=== PATIENT | male | born 1955 | race African-American/Black ===

== ENCOUNTER 2022-03-30 10:42 | Emergency (ER) | payer OTHER ==
[2022-03-30 11:05] VITALS: BP 131/72; PULSE 93; RESP 18; TEMP 99.2; BMI 29.2
[2022-03-30] MEDS ORDERED: DIPHTH,PERTUSS(ACELL),TET 0.5 ML DISP.SYRIN IM ONE ×2 (12:12→12:13)
== END 2022-03-30 14:33 | disposition home or self-care (01) ==
LOC: JER 10:42 → JERFT 10:42
PROC: 3E0234Z Introduction of Serum, Toxoid and Vaccine into Muscle, Percutaneous Approach (ICD-10-PCS; principal; 2022-03-30)
DX: S63.501A Unspecified sprain of right wrist, initial encounter (principal); W01.0XXA Fall on same level from slipping, tripping and stumbling without subsequent striking against object, initial encounter
CPT/HCPCS: 70450-TC; 70486-TC; 72125-TC; 73110-TC-RT-FY; 73130-TC-RT-FY; 90471; 90715; 99284-25

== ENCOUNTER 2022-09-11 01:45 | Inpatient (IN) | payer OTHER ==
[2022-09-11 02:36] LABS: VENOUS BASE EXCESS -0.3 mmol/L (-2-2); VENOUS O2 SATURATION 68.3 % (70-80); VENOUS PCO2 45.2 mmHg (38-52); VENOUS PH 7.365 (7.310-7.410)
[2022-09-11 02:37] LABS: BASO % 0.9 % (0-2.0); EOS % 2.6 % (0-4.5); HEMATOCRIT 27.8 % (35.4-49); HEMOGLOBIN 9.4 GM/dL (11.7-16.9); LYMPH % 6.6 % (8-40); MCH 32.4 pg (25.7-33.7); MCHC 33.9 g/dl (32.0-35.9); MEAN CELL VOLUME 95.7 fl (80-96); MEAN PLT VOLUME 7.7 fl (7.5-11.1); MONO % 7.3 % (3.8-10.2); NEUT % 82.6 % (42.8-82.8); PLATELET COUNT 271 10^3/uL (134-434); RDW 17.5 % (11.9-15.9); WHITE BLOOD COUNT 9.7 K/mm3 (4.0-10.0)
[2022-09-11 02:46] LABS: INR 1.24 (0.83-1.09); PROTHROMBIN TIME (PATIENT) 14.3 SEC (9.7-13.0)
[2022-09-11 02:49] LABS: ACTIVATED PTT 36.4 SECONDS (25.2-36.5)
[2022-09-11 02:55] LABS: CHLORIDE 100 mmol/L (98-107); POTASSIUM 3.6 mmol/L (3.5-5.1); SODIUM 137 mmol/L (136-145)
[2022-09-11 02:56] LABS: ANION GAP 8 MMOL/L (8-16); CALCIUM 8.8 mg/dL (8.5-10.1); CO2 29 mmol/L (21-32)
[2022-09-11 02:58] LABS: BLOOD UREA NITROGEN 48.5 mg/dL (7-18); GLUCOSE,RANDOM 99 mg/dL (74-106)
[2022-09-11 03:01] LABS: SGOT/AST 17 U/L (15-37); SGPT/ALT 21 U/L (13-61)
[2022-09-11 03:02] LABS: BILIRUBIN,TOTAL 0.4 mg/dL (0.2-1); TOT PROT 6.6 g/dl (6.4-8.2)
[2022-09-11 03:03] LABS: ALK PHOS 164 U/L (45-117)
[2022-09-11 03:26] LABS: CREATININE 10.4 mg/dL (0.55-1.3); N-TERMINAL BNP 103291.3 pg/ml (5-125)
[2022-09-11] MEDS ORDERED: FUROSEMIDE 40 MG/4 ML INJECTABLE VIAL IVPUSH ONE (05:40)
[2022-09-11] MEDS: hydrALAZINE HCL 50 MG TABLET (FP) PO SCH ×3 (06:25→21:13)
[2022-09-11] MEDS: HEPARIN NA (PORCINE) 5,000 UNITS/ML 1ML VIAL SQ SCH ×3 (06:25→21:14)
[2022-09-11 07:02] LABS: ARTERIAL BLD GAS O2 SATURATION 97.2 % (95-98); ARTERIAL BLOOD GAS BASE EXCESS 2.9 mmol/L (-2-2); ARTERIAL BLOOD GAS pH 7.393 (7.350-7.450)
[2022-09-11 07:03] LABS: ALLENS TEST POSITIVE
[2022-09-11 07:04] LABS: VENT MODE S/T; VENT RATE 12
[2022-09-11 07:10] LABS: CHLORIDE 98 mmol/L (98-107); POTASSIUM 4.3 mmol/L (3.5-5.1); SODIUM 137 mmol/L (136-145)
[2022-09-11 07:11] LABS: BASO % 0.8 % (0-2.0); EOS % 2.4 % (0-4.5); HEMATOCRIT 27.1 % (35.4-49); HEMOGLOBIN 9.3 GM/dL (11.7-16.9); LYMPH % 10.8 % (8-40); MCH 33.1 pg (25.7-33.7); MCHC 34.4 g/dl (32.0-35.9); MEAN CELL VOLUME 96.3 fl (80-96); MEAN PLT VOLUME 7.9 fl (7.5-11.1); MONO % 8.1 % (3.8-10.2); NEUT % 77.9 % (42.8-82.8); PLATELET COUNT 247 10^3/uL (134-434); RBC 2.82 M/mm3 (4.00-5.60); RDW 17.3 % (11.9-15.9); WHITE BLOOD COUNT 9.6 K/mm3 (4.0-10.0)
[2022-09-11 07:12] LABS: CALCIUM 9.4 mg/dL (8.5-10.1)
[2022-09-11 07:13] LABS: ANION GAP 9 MMOL/L (8-16); BLOOD UREA NITROGEN 52.3 mg/dL (7-18); CO2 29 mmol/L (21-32); GLUCOSE,RANDOM 101 mg/dL (74-106); MAGNESIUM 1.7 mg/dL (1.8-2.4)
[2022-09-11 07:16] LABS: PHOSPHOROUS 3.5 mg/dL (2.5-4.9); SGOT/AST 16 U/L (15-37); SGPT/ALT 21 U/L (13-61)
[2022-09-11 07:18] LABS: BILIRUBIN,TOTAL 0.5 mg/dL (0.2-1); TOT PROT 6.6 g/dl (6.4-8.2)
[2022-09-11 07:19] LABS: ALK PHOS 163 U/L (45-117)
[2022-09-11 08:25] VITALS: BMI 29.2
[2022-09-11 08:30] LABS: CREATININE 11.2 mg/dL (0.55-1.3)
[2022-09-11] MEDS: NIFEdipine E.R 60 MG TABLET PO SCH ×2 (09:33→21:13)
[2022-09-11] MEDS: CINACALCET HCL 30 MG TAB (FP) PO SCH (09:33)
[2022-09-11] MEDS ORDERED: SODIUM CHLORIDE 250 ML IV PRN (10:17)
[2022-09-11] MEDS ORDERED: MAGNESIUM SULF 50% (8.12 MEQ/2 ML-1 GM VIAL) IVPB ONE (12:11)
[2022-09-11 12:20] LABS: IRON SERUM 23 ug/dL (50-175); TOTAL IRON BINDING CAPACITY 200 ug/dL (250-450)
[2022-09-11] MEDS: methaDONE 40 MG, methaDONE 30 MG PO SCH (12:25)
[2022-09-11 12:37] LABS: RETICULOCYTES 3.23 % (0.5-1.5)
[2022-09-11] MEDS: ATORVASTATIN CA 80 MG TABLET (FP) PO SCH (21:13)
[2022-09-12] MEDS: methaDONE 40 MG, methaDONE 30 MG PO SCH (06:14)
[2022-09-12] MEDS: HEPARIN NA (PORCINE) 5,000 UNITS/ML 1ML VIAL SQ SCH ×3 (06:15→22:00)
[2022-09-12] MEDS: hydrALAZINE HCL 50 MG TABLET (FP) PO SCH ×3 (06:15→21:59)
[2022-09-12 07:01] LABS: BASO % 1.2 % (0-2.0); EOS % 8.9 % (0-4.5); HEMATOCRIT 29.5 % (35.4-49); LYMPH % 15.1 % (8-40); MCH 33.1 pg (25.7-33.7); MEAN CELL VOLUME 97.1 fl (80-96); MEAN PLT VOLUME 7.8 fl (7.5-11.1); MONO % 9.7 % (3.8-10.2); NEUT % 65.1 % (42.8-82.8); PLATELET COUNT 256 10^3/uL (134-434); RBC 3.04 M/mm3 (4.00-5.60); WHITE BLOOD COUNT 6.9 K/mm3 (4.0-10.0)
[2022-09-12 07:25] LABS: POTASSIUM 4.3 mmol/L (3.5-5.1)
[2022-09-12 07:31] LABS: BLOOD UREA NITROGEN 29.6 mg/dL (7-18); CALCIUM 9.2 mg/dL (8.5-10.1); MAGNESIUM 1.8 mg/dL (1.8-2.4)
[2022-09-12 07:35] LABS: BILIRUBIN,TOTAL 0.4 mg/dL (0.2-1); PHOSPHOROUS 3.5 mg/dL (2.5-4.9); TOT PROT 6.8 g/dl (6.4-8.2)
[2022-09-12 07:38] LABS: CREATININE 7.4 mg/dL (0.55-1.3)
[2022-09-12] MEDS: NIFEdipine E.R 60 MG TABLET PO SCH ×2 (09:09→21:59)
[2022-09-12] MEDS: CINACALCET HCL 30 MG TAB (FP) PO SCH (09:09)
[2022-09-12] MEDS: PATIENT'S OWN MEDICATION (NON-FORMULARY) (Ferric Citrate [Auryxia] 210 MG Tablet) PO SCH ×2 (17:24→22:00)
[2022-09-12] MEDS: ATORVASTATIN CA 80 MG TABLET (FP) PO SCH (21:59)
[2022-09-13] MEDS: methaDONE 40 MG, methaDONE 30 MG PO SCH (06:48)
[2022-09-13] MEDS: HEPARIN NA (PORCINE) 5,000 UNITS/ML 1ML VIAL SQ SCH ×3 (06:48→21:44)
[2022-09-13] MEDS: hydrALAZINE HCL 50 MG TABLET (FP) PO SCH ×3 (06:49→21:44)
[2022-09-13 07:18] LABS: BASO % 1.1 % (0-2.0); EOS % 9.5 % (0-4.5); HEMOGLOBIN 9.3 GM/dL (11.7-16.9); LYMPH % 18.7 % (8-40); MCH 33.2 pg (25.7-33.7); MCHC 34.6 g/dl (32.0-35.9); MEAN PLT VOLUME 8.6 fl (7.5-11.1); MONO % 9.8 % (3.8-10.2); NEUT % 60.9 % (42.8-82.8); PLATELET COUNT 271 10^3/uL (134-434); RBC 2.81 M/mm3 (4.00-5.60); RDW 17.5 % (11.9-15.9); WHITE BLOOD COUNT 7.2 K/mm3 (4.0-10.0)
[2022-09-13 07:33] LABS: CALCIUM 9.1 mg/dL (8.5-10.1); CHLORIDE 102 mmol/L (98-107); POTASSIUM 4.3 mmol/L (3.5-5.1); SODIUM 140 mmol/L (136-145)
[2022-09-13 07:35] LABS: ANION GAP 7 MMOL/L (8-16); BLOOD UREA NITROGEN 43.4 mg/dL (7-18); CO2 31 mmol/L (21-32); GLUCOSE,RANDOM 77 mg/dL (74-106)
[2022-09-13 07:39] LABS: CREATININE 9.2 mg/dL (0.55-1.3)
[2022-09-13] MEDS: PATIENT'S OWN MEDICATION (NON-FORMULARY) (Ferric Citrate [Auryxia] 210 MG Tablet) PO SCH ×4 (10:40→21:44)
[2022-09-13] MEDS: CINACALCET HCL 30 MG TAB (FP) PO SCH (10:41)
[2022-09-13] MEDS: NIFEdipine E.R 60 MG TABLET PO SCH ×2 (10:41→21:44)
[2022-09-13] MEDS ORDERED: HEPARIN NA (PORCINE) 5,000 UNITS/ML 1ML VIAL IVPUSH ONE (15:00)
[2022-09-13] MEDS ORDERED: SODIUM CHLORIDE 250 ML IV PRN (15:00)
[2022-09-13] MEDS: ATORVASTATIN CA 80 MG TABLET (FP) PO SCH (21:43)
[2022-09-14] MEDS: HEPARIN NA (PORCINE) 5,000 UNITS/ML 1ML VIAL SQ SCH ×3 (06:24→22:51)
[2022-09-14] MEDS: methaDONE 40 MG, methaDONE 30 MG PO SCH (06:24)
[2022-09-14] MEDS: hydrALAZINE HCL 50 MG TABLET (FP) PO SCH ×3 (06:24→22:51)
[2022-09-14 07:10] LABS: BLOOD UREA NITROGEN 24.6 mg/dL (7-18); CALCIUM 9.1 mg/dL (8.5-10.1); MAGNESIUM 1.8 mg/dL (1.8-2.4)
[2022-09-14 07:13] LABS: CREATININE 6.2 mg/dL (0.55-1.3); PHOSPHOROUS 3.6 mg/dL (2.5-4.9)
[2022-09-14] MEDS ORDERED: SODIUM CHLORIDE 250 ML IV PRN (07:40)
[2022-09-14 09:48] LABS: ARTERIAL BLD GAS O2 SATURATION 95.8 % (95-98); ARTERIAL BLOOD GAS PO2 74.7 mmHg (80-100); ARTERIAL BLOOD GAS pH 7.477 (7.350-7.450)
[2022-09-14 09:52] LABS: ALLENS TEST POSITIVE
[2022-09-14] MEDS: CINACALCET HCL 30 MG TAB (FP) PO SCH (11:28)
[2022-09-14] MEDS: NIFEdipine E.R 60 MG TABLET PO SCH ×2 (11:28→22:51)
[2022-09-14] MEDS: PATIENT'S OWN MEDICATION (NON-FORMULARY) (Ferric Citrate [Auryxia] 210 MG Tablet) PO SCH ×4 (11:28→22:52)
[2022-09-14] MEDS: ATORVASTATIN CA 80 MG TABLET (FP) PO SCH (22:51)
[2022-09-15] MEDS: HEPARIN NA (PORCINE) 5,000 UNITS/ML 1ML VIAL SQ SCH ×3 (06:11→21:11)
[2022-09-15] MEDS: methaDONE 40 MG, methaDONE 30 MG PO SCH (06:11)
[2022-09-15] MEDS: hydrALAZINE HCL 50 MG TABLET (FP) PO SCH ×3 (06:11→21:11)
[2022-09-15 07:08] LABS: HEMOGLOBIN 10.6 GM/dL (11.7-16.9); MCH 32.8 pg (25.7-33.7); MCHC 34.3 g/dl (32.0-35.9); MEAN CELL VOLUME 95.8 fl (80-96); MEAN PLT VOLUME 7.8 fl (7.5-11.1); PLATELET COUNT 268 10^3/uL (134-434); RBC 3.24 M/mm3 (4.00-5.60); RDW 17.3 % (11.9-15.9); WHITE BLOOD COUNT 7.4 K/mm3 (4.0-10.0)
[2022-09-15 07:30] LABS: POTASSIUM 3.9 mmol/L (3.5-5.1)
[2022-09-15 07:32] LABS: CALCIUM 9.1 mg/dL (8.5-10.1)
[2022-09-15 07:33] LABS: BLOOD UREA NITROGEN 32.5 mg/dL (7-18); MAGNESIUM 1.8 mg/dL (1.8-2.4)
[2022-09-15 07:36] LABS: CREATININE 6.2 mg/dL (0.55-1.3); PHOSPHOROUS 3.7 mg/dL (2.5-4.9)
[2022-09-15] MEDS ORDERED: SODIUM CHLORIDE 250 ML IV PRN (08:39)
[2022-09-15] MEDS ORDERED: EPOETIN ALFA-EPBX 4,000 UNIT/ML VIAL IVPUSH ONE (09:00)
[2022-09-15] MEDS: PATIENT'S OWN MEDICATION (NON-FORMULARY) (Ferric Citrate [Auryxia] 210 MG Tablet) PO SCH ×6 (13:27→21:11)
[2022-09-15] MEDS: NIFEdipine E.R 60 MG TABLET PO SCH ×2 (14:01→21:10)
[2022-09-15] MEDS: CINACALCET HCL 30 MG TAB (FP) PO SCH (14:01)
[2022-09-15] MEDS: ATORVASTATIN CA 80 MG TABLET (FP) PO SCH (21:10)
[2022-09-16] MEDS: HEPARIN NA (PORCINE) 5,000 UNITS/ML 1ML VIAL SQ SCH ×3 (06:12→22:03)
[2022-09-16] MEDS: methaDONE 40 MG, methaDONE 30 MG PO SCH (06:14)
[2022-09-16] MEDS: hydrALAZINE HCL 50 MG TABLET (FP) PO SCH ×3 (06:14→22:04)
[2022-09-16 07:30] LABS: CALCIUM 9.3 mg/dL (8.5-10.1)
[2022-09-16 07:31] LABS: ALBUMIN 3.5 g/dl (3.4-5.0)
[2022-09-16 07:34] LABS: CREATININE 5.1 mg/dL (0.55-1.3)
[2022-09-16 07:36] LABS: BILIRUBIN,TOTAL 0.3 mg/dL (0.2-1); TOT PROT 7.3 g/dl (6.4-8.2)
[2022-09-16] MEDS: PATIENT'S OWN MEDICATION (NON-FORMULARY) (Ferric Citrate [Auryxia] 210 MG Tablet) PO SCH ×4 (08:25→22:40)
[2022-09-16] MEDS ORDERED: TAMSULOSIN HCL 0.4 MG CAP PO SCH (08:30)
[2022-09-16] MEDS: NIFEdipine E.R 60 MG TABLET PO SCH ×2 (09:40→22:04)
[2022-09-16] MEDS: CINACALCET HCL 30 MG TAB (FP) PO SCH (09:40)
[2022-09-16] MEDS: ATORVASTATIN CA 80 MG TABLET (FP) PO SCH (22:04)
[2022-09-17] MEDS: methaDONE 40 MG, methaDONE 30 MG PO SCH (06:28)
[2022-09-17] MEDS: HEPARIN NA (PORCINE) 5,000 UNITS/ML 1ML VIAL SQ SCH ×3 (06:37→21:58)
[2022-09-17] MEDS: hydrALAZINE HCL 50 MG TABLET (FP) PO SCH ×3 (07:25→21:58)
[2022-09-17 09:06] VITALS: RESP 18
[2022-09-17] MEDS: CINACALCET HCL 30 MG TAB (FP) PO SCH (09:06)
[2022-09-17] MEDS: PATIENT'S OWN MEDICATION (NON-FORMULARY) (Ferric Citrate [Auryxia] 210 MG Tablet) PO SCH ×4 (09:07→21:58)
[2022-09-17] MEDS: NIFEdipine E.R 60 MG TABLET PO SCH ×2 (09:07→21:59)
[2022-09-17] MEDS: ATORVASTATIN CA 80 MG TABLET (FP) PO SCH (21:59)
[2022-09-18] MEDS: HEPARIN NA (PORCINE) 5,000 UNITS/ML 1ML VIAL SQ SCH ×2 (05:10→13:45)
[2022-09-18] MEDS: hydrALAZINE HCL 50 MG TABLET (FP) PO SCH ×2 (05:10→13:47)
[2022-09-18] MEDS: methaDONE 40 MG, methaDONE 30 MG PO SCH (05:11)
[2022-09-18] MEDS: PATIENT'S OWN MEDICATION (NON-FORMULARY) (Ferric Citrate [Auryxia] 210 MG Tablet) PO SCH ×3 (08:56→18:57)
[2022-09-18] MEDS ORDERED: EPOETIN ALFA 10,000 UNIT/1 ML VIAL IVPUSH ONE (09:07)
[2022-09-18] MEDS: CINACALCET HCL 30 MG TAB (FP) PO SCH (09:36)
[2022-09-18] MEDS: NIFEdipine E.R 60 MG TABLET PO SCH (13:47)
[2022-09-18 14:27] VITALS: TEMP 98.1
[2022-09-18 18:22] VITALS: BP 141/82; PULSE 76
== END 2022-09-18 19:04 | disposition home or self-care (01) | DRG 291 ==
LOC: JER 01:45 → JERBED 03:45 → J4S 05:28
PROVIDERS: ADMIT Internal Medicine; ATTEND Internal Medicine
PROC: 5A1D70Z Performance of Urinary Filtration, Intermittent, Less than 6 Hours Per Day (ICD-10-PCS; principal; 2022-09-13)
PROC: 5A1D70Z Performance of Urinary Filtration, Intermittent, Less than 6 Hours Per Day (ICD-10-PCS; 2022-09-14)
PROC: 5A1D70Z Performance of Urinary Filtration, Intermittent, Less than 6 Hours Per Day (ICD-10-PCS; 2022-09-15)
PROC: 5A1D70Z Performance of Urinary Filtration, Intermittent, Less than 6 Hours Per Day (ICD-10-PCS; 2022-09-18)
DX: I13.2 Hypertensive heart and chronic kidney disease with heart failure and with stage 5 chronic kidney disease, or end stage renal disease (principal); I50.33 Acute on chronic diastolic (congestive) heart failure; J96.01 Acute respiratory failure with hypoxia; N18.6 End stage renal disease; I24.8 Other forms of acute ischemic heart disease; E78.5 Hyperlipidemia, unspecified; D63.1 Anemia in chronic kidney disease; Z99.2 Dependence on renal dialysis; E87.79 Other fluid overload
CPT/HCPCS: 0241U-QW; 36415; 36600; 71045-TC-FY; 71275-TC; 80048; 80053; 82728; 82803; 83540; 83550; 83735; 83880; 84100; 84484; 85025; 85027; 85045; 85610; 85730; 86803; 87340; 93005; 93010; 93306-TC; 94660; 94761; 99285-25; J1644; Q5106; Q9967

== ENCOUNTER 2023-01-10 05:51 | Inpatient (IN) | payer OTHER ==
[2023-01-10 05:59] VITALS: BMI 27.1
[2023-01-10 06:44] LABS: BASO % 0.8 % (0-2.0); EOS % 6.1 % (0-4.5); HEMATOCRIT 29.9 % (35.4-49); HEMOGLOBIN 9.8 GM/dL (11.7-16.9); LYMPH % 13.5 % (8-40); MCH 30.4 pg (25.7-33.7); MCHC 32.6 g/dl (32.0-35.9); MEAN CELL VOLUME 93.3 fl (80-96); MEAN PLT VOLUME 8.3 fl (7.5-11.1); MONO % 9.6 % (3.8-10.2); PLATELET COUNT 202 10^3/uL (134-434); RBC 3.21 M/mm3 (4.00-5.60); RDW 17.9 % (11.9-15.9); WHITE BLOOD COUNT 7.7 K/mm3 (4.0-10.0)
[2023-01-10 06:49] LABS: INR 1.1 (0.83-1.09); PROTHROMBIN TIME (PATIENT) 12.8 SEC (9.7-13.0)
[2023-01-10 07:04] LABS: CHLORIDE 102 mmol/L (98-107); POTASSIUM 4.2 mmol/L (3.5-5.1); SODIUM 140 mmol/L (136-145)
[2023-01-10 07:06] LABS: CALCIUM 8.5 mg/dL (8.5-10.1)
[2023-01-10 07:07] LABS: ALBUMIN 3.5 g/dl (3.4-5.0); ANION GAP 9 MMOL/L (8-16); BLOOD UREA NITROGEN 42.3 mg/dL (7-18); CO2 29 mmol/L (21-32); MAGNESIUM 1.8 mg/dL (1.8-2.4)
[2023-01-10 07:10] LABS: SGOT/AST 9 U/L (15-37); SGPT/ALT 14 U/L (13-61)
[2023-01-10 07:11] LABS: TOT PROT 6.6 g/dl (6.4-8.2)
[2023-01-10 07:12] LABS: BILIRUBIN,TOTAL 0.3 mg/dL (0.2-1)
[2023-01-10 07:13] LABS: ALK PHOS 287 U/L (45-117)
[2023-01-10 07:22] LABS: CREATININE 10.6 mg/dL (0.55-1.3); N-TERMINAL BNP > 35000.0 pg/ml (5-125)
[2023-01-10 07:30] LABS: GLUCOSE,RANDOM 94 mg/dL (74-106)
[2023-01-10] MEDS ORDERED: SODIUM CHLORIDE 250 ML IV PRN (09:02)
[2023-01-10] MEDS ORDERED: PATIENT'S OWN MEDICATION (NON-FORMULARY) (Ferric Citrate [Auryxia] 210 MG Tablet) PO SCH (11:15)
[2023-01-10] MEDS: hydrALAZINE HCL 50 MG TABLET (FP) PO SCH ×2 (17:41→21:47)
[2023-01-10] MEDS: ATORVASTATIN CA 80 MG TABLET (FP) PO SCH (21:47)
[2023-01-10] MEDS: NIFEdipine E.R 60 MG TABLET PO SCH (21:47)
[2023-01-10] MEDS: HEPARIN NA (PORCINE) 5,000 UNITS/ML 1ML VIAL SQ SCH (21:50)
[2023-01-11] MEDS ORDERED: methaDONE HCL 40 MG DISPERSABLE TABLET PO SCH (06:00)
[2023-01-11] MEDS: hydrALAZINE HCL 50 MG TABLET (FP) PO SCH ×3 (07:05→22:39)
[2023-01-11 08:45] LABS: BASO % 0.9 % (0-2.0); EOS % 5.2 % (0-4.5); HEMOGLOBIN 10.4 GM/dL (11.7-16.9); LYMPH % 16.7 % (8-40); MCH 30.7 pg (25.7-33.7); MCHC 32.7 g/dl (32.0-35.9); MEAN CELL VOLUME 94.1 fl (80-96); MEAN PLT VOLUME 8.4 fl (7.5-11.1); MONO % 9.2 % (3.8-10.2); PLATELET COUNT 211 10^3/uL (134-434); RDW 18.2 % (11.9-15.9); WHITE BLOOD COUNT 5.9 K/mm3 (4.0-10.0)
[2023-01-11 09:09] LABS: CHLORIDE 101 mmol/L (98-107); POTASSIUM 4.4 mmol/L (3.5-5.1); SODIUM 140 mmol/L (136-145)
[2023-01-11 09:14] LABS: CALCIUM 9.1 mg/dL (8.5-10.1)
[2023-01-11 09:15] LABS: ALBUMIN 3.5 g/dl (3.4-5.0); ANION GAP 8 MMOL/L (8-16); BLOOD UREA NITROGEN 30.6 mg/dL (7-18); CO2 30 mmol/L (21-32); GLUCOSE,RANDOM 83 mg/dL (74-106); MAGNESIUM 1.8 mg/dL (1.8-2.4)
[2023-01-11 09:17] LABS: CHOLESTEROL 131 mg/dL (50-200); SGOT/AST 9 U/L (15-37); SGPT/ALT 14 U/L (13-61)
[2023-01-11 09:18] LABS: LDL CHOLESTEROL (ONLY SJRH) 81 mg/dL (5-100)
[2023-01-11 09:19] LABS: BILIRUBIN,TOTAL 0.5 mg/dL (0.2-1)
[2023-01-11 09:20] LABS: ALK PHOS 294 U/L (45-117); HDL CHOLESTEROL 37 mg/dL (40-60)
[2023-01-11 09:27] LABS: CREATININE 7.8 mg/dL (0.55-1.3)
[2023-01-11] MEDS: CINACALCET HCL 30 MG TAB (FP) PO SCH (10:27)
[2023-01-11] MEDS: NIFEdipine E.R 60 MG TABLET PO SCH ×2 (10:27→22:39)
[2023-01-11] MEDS: HEPARIN NA (PORCINE) 5,000 UNITS/ML 1ML VIAL SQ SCH ×2 (10:28→22:39)
[2023-01-11] MEDS: methaDONE 40 MG, methaDONE 30 MG PO SCH (14:08)
[2023-01-11] MEDS: PIPERACILLIN/TAZOB 2.25 GM 2.25 GM in DEXTROSE 5%-WATER - 50 ML IVPB SCH ×2 (14:15→22:00)
[2023-01-11] MEDS ORDERED: FERROUS SO4 325 MG TABLET (FP) PO SCH (17:30)
[2023-01-11] MEDS: FERROUS SO4 325 MG TABLET (FP) PO SCH (18:01)
[2023-01-11] MEDS ORDERED: PIPERACILLIN/TAZOB 2.25 GM 2.25 GM in DEXTROSE 5%-WATER - 50 ML IVPB SCH (21:00)
[2023-01-11] MEDS: ATORVASTATIN CA 80 MG TABLET (FP) PO SCH (22:39)
[2023-01-12] MEDS: PIPERACILLIN/TAZOB 2.25 GM 2.25 GM in DEXTROSE 5%-WATER - 50 ML IVPB SCH ×4 (03:10→17:23)
[2023-01-12] MEDS: methaDONE 40 MG, methaDONE 30 MG PO SCH (06:29)
[2023-01-12] MEDS: hydrALAZINE HCL 50 MG TABLET (FP) PO SCH ×3 (06:32→21:38)
[2023-01-12] MEDS ORDERED: SODIUM CHLORIDE 250 ML IV PRN (08:11)
[2023-01-12 10:10] LABS: HEMATOCRIT 27.6 % (35.4-49); HEMOGLOBIN 9.4 GM/dL (11.7-16.9); MEAN CELL VOLUME 91.4 fl (80-96); MEAN PLT VOLUME 8.2 fl (7.5-11.1); PLATELET COUNT 201 10^3/uL (134-434); RBC 3.02 M/mm3 (4.00-5.60); WHITE BLOOD COUNT 6.3 K/mm3 (4.0-10.0)
[2023-01-12 10:27] LABS: CHLORIDE 98 mmol/L (98-107); POTASSIUM 4.5 mmol/L (3.5-5.1); SODIUM 139 mmol/L (136-145)
[2023-01-12 10:29] LABS: CALCIUM 8.6 mg/dL (8.5-10.1)
[2023-01-12 10:30] LABS: ANION GAP 10 MMOL/L (8-16); CO2 31 mmol/L (21-32); GLUCOSE,RANDOM 129 mg/dL (74-106)
[2023-01-12 10:33] LABS: SGOT/AST 9 U/L (15-37); SGPT/ALT 14 U/L (13-61)
[2023-01-12 10:34] LABS: TOT PROT 5.9 g/dl (6.4-8.2)
[2023-01-12 10:35] LABS: BILIRUBIN,TOTAL 0.4 mg/dL (0.2-1)
[2023-01-12 10:41] LABS: ALK PHOS 229 U/L (45-117); BLOOD UREA NITROGEN 57.2 mg/dL (7-18); CREATININE 9.5 mg/dL (0.55-1.3)
[2023-01-12] MEDS: FERROUS SO4 325 MG TABLET (FP) PO SCH ×3 (12:17→17:23)
[2023-01-12] MEDS: HEPARIN NA (PORCINE) 5,000 UNITS/ML 1ML VIAL SQ SCH ×2 (14:16→21:38)
[2023-01-12] MEDS: CINACALCET HCL 30 MG TAB (FP) PO SCH (14:23)
[2023-01-12] MEDS: NIFEdipine E.R 60 MG TABLET PO SCH ×2 (14:25→21:38)
[2023-01-12 21:37] VITALS: RESP 16
[2023-01-12] MEDS: ATORVASTATIN CA 80 MG TABLET (FP) PO SCH (21:38)
[2023-01-13] MEDS: PIPERACILLIN/TAZOB 2.25 GM 2.25 GM in DEXTROSE 5%-WATER - 50 ML IVPB SCH ×2 (01:38→09:06)
[2023-01-13 05:20] VITALS: BP 146/79; PULSE 78; TEMP 97.6
[2023-01-13] MEDS: hydrALAZINE HCL 50 MG TABLET (FP) PO SCH (05:23)
[2023-01-13] MEDS: methaDONE 40 MG, methaDONE 30 MG PO SCH (05:24)
[2023-01-13] MEDS: FERROUS SO4 325 MG TABLET (FP) PO SCH (09:07)
[2023-01-13] MEDS: NIFEdipine E.R 60 MG TABLET PO SCH (09:07)
[2023-01-13] MEDS: CINACALCET HCL 30 MG TAB (FP) PO SCH (09:07)
[2023-01-13] MEDS: HEPARIN NA (PORCINE) 5,000 UNITS/ML 1ML VIAL SQ SCH (09:07)
== END 2023-01-13 11:04 | disposition home or self-care (01) | DRG 193 ==
LOC: JER 05:51 → JERBED 10:05 → J5S 16:18
PROVIDERS: ADMIT Internal Medicine
PROC: 5A1D70Z Performance of Urinary Filtration, Intermittent, Less than 6 Hours Per Day (ICD-10-PCS; principal; 2023-01-12)
DX: J18.9 Pneumonia, unspecified organism (principal); I50.33 Acute on chronic diastolic (congestive) heart failure; J96.01 Acute respiratory failure with hypoxia; N18.6 End stage renal disease; I13.2 Hypertensive heart and chronic kidney disease with heart failure and with stage 5 chronic kidney disease, or end stage renal disease; N17.9 Acute kidney failure, unspecified; F11.20 Opioid dependence, uncomplicated; R07.89 Other chest pain; E78.5 Hyperlipidemia, unspecified; D63.1 Anemia in chronic kidney disease; E87.70 Fluid overload, unspecified; Z99.2 Dependence on renal dialysis
CPT/HCPCS: 0241U-QW; 36415; 71045-TC-FY; 80053; 80061; 83036; 83735; 83880; 84100; 84443; 84484; 85025; 85027; 85610; 86704; 86803; 87040; 87340; 87517; 93005; 93010; 99285-25; J1644

== ENCOUNTER 2024-07-28 05:28 | Day surgery (SDC) | payer OTHER ==
[2024-07-24 10:24] VITALS: BMI 22.9
[2024-07-28] MEDS ORDERED: BUPIVACAINE HCL/PF 0.5% (5MG/ML) 10 ML VIAL ONE (14:19)
[2024-07-28] MEDS ORDERED: ETOMIDATE 20 MG/10 ML VIAL IVPUSH ONE (14:26)
[2024-07-28] MEDS ORDERED: SUCCINYLCHOLINE CHLORIDE 200 MG/10 ML SYRINGE ONE (14:27)
[2024-07-28] MEDS ORDERED: ROCURONIUM BROMIDE 50 MG/5 ML SYRINGE ONE (14:27)
[2024-07-28] MEDS ORDERED: PROPOFOL 20 ML ONE (14:36)
[2024-07-28] MEDS: BUPIVACAINE HCL/PF 0.5% (5MG/ML) 10 ML VIAL IJ ONE ×2 (14:48)
[2024-07-28] MEDS ORDERED: ALBUTEROL SO4 0.083% IH SOL 2.5 MG/3 ML VIAL.NEB. NEB ONE (16:49)
[2024-07-28] MEDS: ALBUTEROL SO4 0.083% IH SOL 2.5 MG/3 ML VIAL.NEB. NEB ONE (16:52)
[2024-07-28 17:05] VITALS: RESP 16
[2024-07-28 17:58] VITALS: BP 158/70; PULSE 78; TEMP 97.8
== END 2024-07-28 18:21 | disposition home or self-care (01) ==
LOC: JASU-SURG 05:28
PROVIDERS: ATTEND Surgery
PROC: 0DNW4ZZ Release Peritoneum, Percutaneous Endoscopic Approach (ICD-10-PCS; 2024-07-28)
PROC: 0WJG4ZZ Inspection of Peritoneal Cavity, Percutaneous Endoscopic Approach (ICD-10-PCS; principal; 2024-07-28 14:00)
DX: T85.611A Breakdown (mechanical) of intraperitoneal dialysis catheter, initial encounter (principal); K66.0 Peritoneal adhesions (postprocedural) (postinfection); Y82.8 Other medical devices associated with adverse incidents; Y92.9 Unspecified place or not applicable
CPT/HCPCS: 94640; 94760; J1644

== ENCOUNTER 2024-09-09 16:07 | Inpatient (IN) | payer OTHER ==
[2024-09-09 17:32] LABS: ABSOLUTE IMMATURE GRANULOCYTES 0.04 x10^3/uL (0.0-0.031); BASOPHILS # 0.02 x10^3/uL (0.01-0.08); EOSINOPHIL % 4.6 % (0.8-7.0); EOSINOPHILS # 0.31 x10^3/uL (0.04-0.54); HEMATOCRIT 20.2 % (40.1-51.0); HEMOGLOBIN 6.3 g/dL (13.7-17.5); MCHC 31.2 g/dl (32.3-36.5); MEAN CELL VOLUME 103.1 fl (79.0-92.2); MEAN PLT VOLUME 9.7 fl (9.4-12.4); MONOCYTE # 0.82 x10^3/uL (0.30-0.82); MONOCYTE % 12.2 % (5.3-12.2); PLATELET COUNT 223 x10^3/uL (163-337); RDW 16.7 % (12.2-16.4)
[2024-09-09 17:35] LABS: VENOUS BASE EXCESS 0.8 mmol/L (-2-2); VENOUS O2 SATURATION 18.4 % (70-80); VENOUS PCO2 49.5 mmHg (38-52); VENOUS PH 7.348 (7.310-7.410)
[2024-09-09 17:40] LABS: INR 1.13 (0.83-1.09); PROTHROMBIN TIME (PATIENT) 12.3 SEC (9.7-13.0)
[2024-09-09 17:55] LABS: CHLORIDE 100 mmol/L (98-107); POTASSIUM 5.1 mmol/L (3.5-5.1); SODIUM 141 mmol/L (136-145)
[2024-09-09 17:57] LABS: CALCIUM 7.6 mg/dL (8.5-10.1)
[2024-09-09 17:58] LABS: ALBUMIN 2.7 g/dl (3.4-5.0); ANION GAP 14 mmol/L (4-13); CO2 27 mmol/L (21-32); GLUCOSE,RANDOM 84 mg/dL (74-106)
[2024-09-09 18:01] LABS: CREATININE 17.3 mg/dL (0.55-1.3); PHOSPHOROUS 5.8 mg/dL (2.5-4.9); SGOT/AST 19 U/L (15-37); SGPT/ALT 28 U/L (13-61)
[2024-09-09 18:02] LABS: BILIRUBIN,TOTAL 0.3 mg/dL (0.2-1); TOT PROT 5.9 g/dl (6.4-8.2)
[2024-09-09 18:04] LABS: ALK PHOS 102 U/L (45-117)
[2024-09-09] MEDS ORDERED: PANTOPRAZOLE SODIUM 40 MG/100 ML BAG IVPB ONE (19:29)
[2024-09-09] MEDS: PANTOPRAZOLE SODIUM 40 MG in SODIUM CHLORIDE 100 ML IVPB ONE (19:53)
[2024-09-09] MEDS ORDERED: PANTOPRAZOLE SODIUM 40 MG VIAL ONE (21:51)
[2024-09-09] MEDS: PANTOPRAZOLE SODIUM 40 MG VIAL IVPUSH SCH (22:01)
[2024-09-09 23:13] LABS: Reticulocyte % 2.77 % (0.51-1.81)
[2024-09-09] MEDS ORDERED: PATIENT'S OWN MEDICATION (NON-FORMULARY) (Ferric Citrate [Auryxia] 210 MG Tablet) PO SCH (23:15)
[2024-09-10 00:50] LABS: IRON SERUM 31 ug/dL (50-175); TOTAL IRON BINDING CAPACITY 231 ug/dL (250-450)
[2024-09-10 02:08] LABS: HEMATOCRIT 21.5 % (40.1-51.0); HEMOGLOBIN 6.8 g/dL (13.7-17.5); MCHC 31.6 g/dl (32.3-36.5); MEAN CELL VOLUME 100.9 fl (79.0-92.2); MEAN PLT VOLUME 10.2 fl (9.4-12.4); PLATELET COUNT 209 x10^3/uL (163-337); RDW 17.8 % (12.2-16.4)
[2024-09-10 10:01] LABS: HEMATOCRIT 24.8 % (40.1-51.0); HEMOGLOBIN 7.8 g/dL (13.7-17.5); MCHC 31.5 g/dl (32.3-36.5); MEAN CELL VOLUME 98.8 fl (79.0-92.2); MEAN PLT VOLUME 10.3 fl (9.4-12.4); PLATELET COUNT 219 x10^3/uL (163-337); RDW 19.3 % (12.2-16.4)
[2024-09-10] MEDS: ISOSORBIDE MONONITRATE 30 MG TAB.SR.24H (FP) PO SCH (10:19)
[2024-09-10 10:30] LABS: CHLORIDE 101 mmol/L (98-107); POTASSIUM 5.3 mmol/L (3.5-5.1); SODIUM 140 mmol/L (136-145)
[2024-09-10 10:31] LABS: CALCIUM 7.6 mg/dL (8.5-10.1)
[2024-09-10 10:32] LABS: ALBUMIN 2.8 g/dl (3.4-5.0); ANION GAP 13 mmol/L (4-13); BLOOD UREA NITROGEN 103.8 mg/dL (7-18); CO2 26 mmol/L (21-32); GLUCOSE,RANDOM 74 mg/dL (74-106)
[2024-09-10 10:35] LABS: SGOT/AST 16 U/L (15-37); SGPT/ALT 22 U/L (13-61)
[2024-09-10 10:36] LABS: BILIRUBIN,TOTAL 0.4 mg/dL (0.2-1)
[2024-09-10 10:37] LABS: TOT PROT 5.8 g/dl (6.4-8.2)
[2024-09-10 10:38] LABS: ALK PHOS 89 U/L (45-117)
[2024-09-10 10:39] LABS: CREATININE 18.3 mg/dL (0.55-1.3)
[2024-09-10] MEDS: CINACALCET HCL 30 MG TAB (FP) PO SCH (11:21)
[2024-09-10 11:56] LABS: IRON SERUM 34 ug/dL (50-175); TOTAL IRON BINDING CAPACITY 216 ug/dL (250-450)
[2024-09-10] MEDS: methaDONE HCL 40 MG DISPERSABLE TABLET PO SCH (12:20)
[2024-09-10] MEDS: methaDONE 40 MG, methaDONE 30 MG PO SCH (12:22)
[2024-09-10 15:04] VITALS: BMI 25.2
[2024-09-10] MEDS: CARVEDILOL 25 MG TABLET (FP) PO SCH (17:56)
[2024-09-10] MEDS ORDERED: FERRIC CITRATE 420 MG PO SCH (17:56)
[2024-09-10] MEDS: PERITONEAL DIALYSIS 2.5% SOLN 2,500 ML IP SCH ×2 (18:20→18:30)
[2024-09-10] MEDS: CARVEDILOL 25 MG TABLET (FP) PO ONE (21:59)
[2024-09-11] MEDS: methaDONE 40 MG, methaDONE 30 MG PO SCH (05:48)
[2024-09-11 06:37] LABS: HEMOGLOBIN 7.8 g/dL (13.7-17.5); MCHC 31.2 g/dl (32.3-36.5); MEAN CELL VOLUME 97.7 fl (79.0-92.2); MEAN PLT VOLUME 10.7 fl (9.4-12.4); PLATELET COUNT 234 x10^3/uL (163-337); RDW 19.4 % (12.2-16.4)
[2024-09-11 06:55] LABS: CHLORIDE 98 mmol/L (98-107); POTASSIUM 5.7 mmol/L (3.5-5.1); SODIUM 140 mmol/L (136-145)
[2024-09-11 06:59] LABS: ANION GAP 15 mmol/L (4-13); BLOOD UREA NITROGEN 99.1 mg/dL (7-18); CO2 26 mmol/L (21-32); GLUCOSE,RANDOM 74 mg/dL (74-106)
[2024-09-11 07:32] LABS: CREATININE 17.3 mg/dL (0.55-1.3)
[2024-09-11] MEDS: SEVELAMER CARBONATE 0.8 GM POWDER PACKET PO ONE (09:21)
[2024-09-11] MEDS: ISOSORBIDE MONONITRATE 30 MG TAB.SR.24H (FP) PO SCH (09:22)
[2024-09-11] MEDS: SODIUM ZIRCONIUM CYCLOSILICATE (LOKELMA) 5 GM PACKET PO ONE (09:22)
[2024-09-11] MEDS: PANTOPRAZOLE 40 MG TABLET PO SCH (09:22)
[2024-09-11] MEDS ORDERED: NIFEdipine E.R 60 MG TABLET PO SCH ×2 (10:00→22:00)
[2024-09-11] MEDS ORDERED: EPOETIN ALFA-EPBX 10,000 UNIT/ML VIAL SQ ONE (10:00)
[2024-09-11] MEDS ORDERED: PANTOPRAZOLE 40 MG TABLET PO SCH (10:00)
[2024-09-11] MEDS: CINACALCET HCL 30 MG TAB (FP) PO SCH (12:13)
[2024-09-11] MEDS: NIFEdipine E.R. 30 MG TABLET PO SCH (12:13)
[2024-09-11] MEDS: IRON SUCROSE INJECTION 100 MG in SODIUM CHLORIDE 100 ML IVPB ONE (12:13)
[2024-09-11] MEDS: EPOETIN ALFA-EPBX 10,000 UNIT/ML VIAL SQ ONE (12:44)
[2024-09-11] MEDS: NIFEdipine E.R. 30 MG TABLET PO ONE (15:10)
[2024-09-11] MEDS: CARVEDILOL 25 MG TABLET (FP) PO SCH (15:23)
[2024-09-11] MEDS: VALSARTAN 80 MG TABLET PO ONE (16:33)
[2024-09-11] MEDS: CARVEDILOL 6.25 MG TABLET (FP) PO ONE (16:33)
[2024-09-11] MEDS: PEG 3350/NA SULF BICARB CL/KCL 4000 ML SOLN.RECON PO ONE (16:33)
[2024-09-11] MEDS: CARVEDILOL 6.25 MG TABLET (FP) PO SCH (21:55)
[2024-09-11] MEDS: BISACODYL 5 MG TABLET.DR (FP) PO ONE (21:55)
[2024-09-11] MEDS: NIFEdipine E.R 60 MG TABLET PO SCH (21:56)
[2024-09-11] MEDS ORDERED: PATIENT'S OWN MEDICATION (NON-FORMULARY) (Nifedipine [Nifedipine Er] 60 MG Tablet.Er) PO SCH (22:00)
[2024-09-12 07:23] LABS: ABSOLUTE IMMATURE GRANULOCYTES 0.03 x10^3/uL (0.0-0.031); BASOPHILS # 0.03 x10^3/uL (0.01-0.08); EOSINOPHIL % 4.5 % (0.8-7.0); EOSINOPHILS # 0.25 x10^3/uL (0.04-0.54); HEMATOCRIT 26.9 % (40.1-51.0); HEMOGLOBIN 8.8 g/dL (13.7-17.5); MCHC 32.7 g/dl (32.3-36.5); MEAN CELL VOLUME 94.4 fl (79.0-92.2); MONOCYTE # 0.55 x10^3/uL (0.30-0.82); PLATELET COUNT 203 x10^3/uL (163-337); RDW 18.1 % (12.2-16.4)
[2024-09-12 07:30] LABS: INR 1.23 (0.83-1.09); PROTHROMBIN TIME (PATIENT) 13.4 SEC (9.7-13.0)
[2024-09-12 07:36] LABS: CHLORIDE 95 mmol/L (98-107); SODIUM 138 mmol/L (136-145)
[2024-09-12 07:38] LABS: ALBUMIN 2.6 g/dl (3.4-5.0); ANION GAP 18 mmol/L (4-13); BLOOD UREA NITROGEN 88.5 mg/dL (7-18); CALCIUM 7.5 mg/dL (8.5-10.1); CO2 25 mmol/L (21-32); MAGNESIUM 1.8 mg/dL (1.8-2.4)
[2024-09-12 07:39] LABS: GLUCOSE,RANDOM 110 mg/dL (74-106)
[2024-09-12 07:41] LABS: SGOT/AST 15 U/L (15-37); SGPT/ALT 24 U/L (13-61)
[2024-09-12 07:42] LABS: BILIRUBIN,TOTAL 0.4 mg/dL (0.2-1); PHOSPHOROUS 6.7 mg/dL (2.5-4.9)
[2024-09-12 07:43] LABS: TOT PROT 5.8 g/dl (6.4-8.2)
[2024-09-12 08:26] LABS: ALK PHOS 95 U/L (45-117)
[2024-09-12 08:29] LABS: CREATININE 15.8 mg/dL (0.55-1.3)
[2024-09-12] MEDS ORDERED: ASPIRIN 81 MG CHEWABLE TABLETS PO SCH (10:00)
[2024-09-12] MEDS: VALSARTAN 80 MG TABLET PO SCH (10:22)
[2024-09-12] MEDS ORDERED: MIDAZOLAM HCL 2 MG/2 ML SINGLE DOSE VIAL ONE (13:58)
[2024-09-12] MEDS: SEVELAMER CARBONATE 2.4 GM POWDER PACKET PO SCH (17:53)
[2024-09-13 09:18] LABS: MEAN CELL VOLUME 96.5 fl (79.0-92.2); MEAN PLT VOLUME 10.9 fl (9.4-12.4); PLATELET COUNT 216 x10^3/uL (163-337); RDW 17.6 % (12.2-16.4)
[2024-09-13 09:20] LABS: Reticulocyte % 3.07 % (0.51-1.81)
[2024-09-13 10:06] LABS: CHLORIDE 95 mmol/L (98-107); POTASSIUM 3.9 mmol/L (3.5-5.1); SODIUM 138 mmol/L (136-145)
[2024-09-13 10:23] LABS: ALBUMIN 2.4 g/dl (3.4-5.0)
[2024-09-13 10:24] LABS: ANION GAP 18 mmol/L (4-13); CO2 25 mmol/L (21-32); GLUCOSE,RANDOM 80 mg/dL (74-106); MAGNESIUM 1.8 mg/dL (1.8-2.4)
[2024-09-13 10:26] LABS: CALCIUM 7.4 mg/dL (8.5-10.1)
[2024-09-13 10:27] LABS: SGOT/AST 11 U/L (15-37); SGPT/ALT 16 U/L (13-61)
[2024-09-13 10:28] LABS: BILIRUBIN,TOTAL 0.3 mg/dL (0.2-1); LDH 219 U/L (87-246); TOT PROT 5.4 g/dl (6.4-8.2)
[2024-09-13 10:29] LABS: CREATININE 15.8 mg/dL (0.55-1.3)
[2024-09-13 10:30] LABS: ALK PHOS 96 U/L (45-117)
[2024-09-13 10:37] LABS: BLOOD UREA NITROGEN 84.2 mg/dL (7-18)
[2024-09-14 08:57] LABS: HEMATOCRIT 28.8 % (40.1-51.0); HEMOGLOBIN 9.2 g/dL (13.7-17.5); MCHC 31.9 g/dl (32.3-36.5); MEAN PLT VOLUME 10.8 fl (9.4-12.4); PLATELET COUNT 204 x10^3/uL (163-337); RDW 16.9 % (12.2-16.4)
[2024-09-14 09:14] VITALS: BP 140/71; PULSE 70; RESP 17; TEMP 97.9
[2024-09-14 09:28] LABS: CHLORIDE 94 mmol/L (98-107); SODIUM 137 mmol/L (136-145)
[2024-09-14 09:41] LABS: MAGNESIUM 1.6 mg/dL (1.8-2.4)
[2024-09-14 10:06] LABS: ANION GAP 18 mmol/L (4-13); BLOOD UREA NITROGEN 73.3 mg/dL (7-18); CALCIUM 7.6 mg/dL (8.5-10.1); CO2 24 mmol/L (21-32)
[2024-09-14 10:07] LABS: ALBUMIN 2.4 g/dl (3.4-5.0); GLUCOSE,RANDOM 105 mg/dL (74-106)
[2024-09-14 10:09] LABS: PHOSPHOROUS 6.5 mg/dL (2.5-4.9); SGOT/AST 10 U/L (15-37); SGPT/ALT 16 U/L (13-61)
[2024-09-14 10:11] LABS: BILIRUBIN,TOTAL 0.2 mg/dL (0.2-1); TOT PROT 5.8 g/dl (6.4-8.2)
[2024-09-14 10:12] LABS: ALK PHOS 105 U/L (45-117)
[2024-09-14 10:13] LABS: CREATININE 14.9 mg/dL (0.55-1.3)
== END 2024-09-14 12:10 | disposition home or self-care (01) | DRG 811 ==
LOC: JER 16:07 → JERBED 19:42 → J4W 09-10 00:49 → J4S 09-10 16:24
PROVIDERS: ADMIT Internal Medicine; ATTEND Internal Medicine
PROC: 30233N1 Transfusion of Nonautologous Red Blood Cells into Peripheral Vein, Percutaneous Approach (ICD-10-PCS; 2024-09-09)
PROC: 0DJD8ZZ Inspection of Lower Intestinal Tract, Via Natural or Artificial Opening Endoscopic (ICD-10-PCS; 2024-09-12)
PROC: 0DB68ZX Excision of Stomach, Via Natural or Artificial Opening Endoscopic, Diagnostic (ICD-10-PCS; principal; 2024-09-12 13:00)
DX: D53.9 Nutritional anemia, unspecified (principal); N18.6 End stage renal disease; I13.2 Hypertensive heart and chronic kidney disease with heart failure and with stage 5 chronic kidney disease, or end stage renal disease; F11.20 Opioid dependence, uncomplicated; I50.32 Chronic diastolic (congestive) heart failure; D63.8 Anemia in other chronic diseases classified elsewhere; D62 Acute posthemorrhagic anemia; R04.0 Epistaxis; Z99.2 Dependence on renal dialysis; I25.10 Atherosclerotic heart disease of native coronary artery without angina pectoris; E87.5 Hyperkalemia; K44.9 Diaphragmatic hernia without obstruction or gangrene; K57.30 Diverticulosis of large intestine without perforation or abscess without bleeding
CPT/HCPCS: 36415; 36430; 71045-TC-FY; 74176-TC; 80048; 80053; 82272; 82525; 82607; 82668; 82728; 82746; 82747; 82803; 83010; 83540; 83550; 83615; 83735; 84100; 84630; 85014; 85025; 85027; 85610; 85730; 86850; 86880; 86900; 86901; 86922; 88305-TC; 88342-TC; 93005; 93010; 99285-25; J1756; P9058; Q5106

== ENCOUNTER 2024-11-10 02:05 | Inpatient (IN) | payer OTHER ==
[2024-11-10] MEDS ORDERED: NITROGLYCERIN 2% OINTMENT - 1GM PACKET TD ONE (03:07)
[2024-11-10 03:08] LABS: ABSOLUTE IMMATURE GRANULOCYTES 0.06 x10^3/uL (0.0-0.031); BASOPHILS # 0.04 x10^3/uL (0.01-0.08); EOSINOPHIL % 4.3 % (0.8-7.0); EOSINOPHILS # 0.46 x10^3/uL (0.04-0.54); MCHC 30.7 g/dl (32.3-36.5); MEAN CELL VOLUME 100.0 fl (79.0-92.2); MEAN PLT VOLUME 11.2 fl (9.4-12.4); MONOCYTE # 0.98 x10^3/uL (0.30-0.82); MONOCYTE % 9.2 % (5.3-12.2); RDW 17.7 % (12.2-16.4)
[2024-11-10] MEDS: NITROGLYCERIN 2% OINTMENT - 1GM PACKET TD ONE (03:10)
[2024-11-10 03:12] LABS: BG HCT 35.0 % (35.4-49); VENOUS BASE EXCESS -1.4 mmol/L (-2-2); VENOUS O2 SATURATION 46.5 % (70-80); VENOUS PH 7.207 (7.310-7.410)
[2024-11-10 03:14] LABS: VENOUS PCO2 71.9 mmHg (38-52)
[2024-11-10 03:17] LABS: INR 1.11 (0.83-1.09); PROTHROMBIN TIME (PATIENT) 12.2 SEC (9.7-13.0)
[2024-11-10 03:20] LABS: ACTIVATED PTT 35.6 SECONDS (25.2-36.5)
[2024-11-10 03:58] LABS: CO2 28 mmol/L (21-32); GLUCOSE,RANDOM 80 mg/dL (74-106)
[2024-11-10 04:01] LABS: SGOT/AST 12 U/L (15-37); SGPT/ALT 22 U/L (13-61)
[2024-11-10] MEDS ORDERED: CARVEDILOL 6.25 MG TABLET (FP) ONE (04:01)
[2024-11-10 04:03] LABS: TOT PROT 6.0 g/dl (6.4-8.2)
[2024-11-10 04:04] LABS: ALK PHOS 223 U/L (45-117)
[2024-11-10] MEDS: CARVEDILOL 6.25 MG TABLET (FP) PO ONE (04:04)
[2024-11-10] MEDS ORDERED: NIFEdipine E.R 60 MG TABLET PO ONE (04:17)
[2024-11-10] MEDS: NIFEdipine E.R 60 MG TABLET PO ONE (04:20)
[2024-11-10 04:22] LABS: CREATININE 16.8 mg/dL (0.55-1.3); N-TERMINAL BNP 74915.6 pg/ml (5-125)
[2024-11-10 04:24] LABS: HCV DIAGNOSTIC IN-HOUSE W/RFLX NON-REACTIVE (NONREACTIVE)
[2024-11-10 06:46] LABS: MCHC 31.1 g/dl (32.3-36.5); MEAN CELL VOLUME 99.6 fl (79.0-92.2); MEAN PLT VOLUME 10.6 fl (9.4-12.4); RDW 17.8 % (12.2-16.4)
[2024-11-10 06:56] LABS: ARTERIAL BLD GAS O2 SATURATION 98.4 % (95-98); ARTERIAL BLOOD GAS BASE EXCESS -2.9 mmol/L (-2-2); ARTERIAL BLOOD GAS PCO2 47.20 mmHg (35-45); ARTERIAL BLOOD GAS PO2 130.8 mmHg (80-100); BG HCT 35.0 % (35.4-49); O2 CONTENT 1.65 % vol
[2024-11-10 06:57] LABS: ALLENS TEST POSITIVE; VENT MODE ST; VENT RATE 16
[2024-11-10 06:59] LABS: CO2 28 mmol/L (21-32); GLUCOSE,RANDOM 89 mg/dL (74-106)
[2024-11-10 07:02] LABS: SGOT/AST 10 U/L (15-37); SGPT/ALT 20 U/L (13-61)
[2024-11-10 07:03] LABS: CREATININE 16.8 mg/dL (0.55-1.3); TOT PROT 5.7 g/dl (6.4-8.2)
[2024-11-10 07:04] LABS: ALK PHOS 197 U/L (45-117)
[2024-11-10] MEDS ORDERED: SODIUM CHLORIDE 250 ML IV PRN (09:32)
[2024-11-10] MEDS ORDERED: NIFEdipine E.R 60 MG TABLET PO SCH (10:00)
[2024-11-10] MEDS ORDERED: ASPIRIN COATED 81 MG TABLET.EC ONE (11:20)
[2024-11-10] MEDS ORDERED: CLOPIDOGREL BISULFATE 75 MG TABLET (FP) ONE (11:21)
[2024-11-10] MEDS ORDERED: ISOSORBIDE MONONITRATE 30 MG TAB.SR.24H (FP) PO ONE (11:21)
[2024-11-10] MEDS: ISOSORBIDE MONONITRATE 30 MG TAB.SR.24H (FP) PO SCH (11:33)
[2024-11-10] MEDS: CLOPIDOGREL BISULFATE 75 MG TABLET (FP) PO SCH (11:33)
[2024-11-10] MEDS: ASPIRIN 81 MG CHEWABLE TABLETS PO SCH (11:33)
[2024-11-10] MEDS: CARVEDILOL 6.25 MG TABLET (FP) PO SCH (11:33)
[2024-11-10] MEDS: EPOETIN ALFA-EPBX 4,000 UNIT/ML VIAL IVPUSH ONE (15:01)
[2024-11-10] MEDS: CINACALCET HCL 30 MG TAB (FP) PO SCH (19:19)
[2024-11-10] MEDS: HEPARIN NA (PORCINE) 5,000 UNITS/ML 1ML VIAL SQ SCH (21:48)
[2024-11-10] MEDS: NIFEdipine E.R 60 MG TABLET PO SCH (21:48)
[2024-11-10 22:11] VITALS: BMI 26.3
[2024-11-10 22:57] LABS: HEPATITIS B SURF AG NON-MATERN NON-REACTIVE (NONREACTIVE)
[2024-11-11 08:41] LABS: ABSOLUTE IMMATURE GRANULOCYTES 0.04 x10^3/uL (0.0-0.031); BASOPHILS # 0.06 x10^3/uL (0.01-0.08); EOSINOPHIL % 4.6 % (0.8-7.0); EOSINOPHILS # 0.31 x10^3/uL (0.04-0.54); MCHC 31.0 g/dl (32.3-36.5); MEAN CELL VOLUME 99.7 fl (79.0-92.2); MEAN PLT VOLUME 11.3 fl (9.4-12.4); MONOCYTE # 0.83 x10^3/uL (0.30-0.82); MONOCYTE % 12.4 % (5.3-12.2); RDW 17.4 % (12.2-16.4)
[2024-11-11 09:29] LABS: CO2 31 mmol/L (21-32); GLUCOSE,RANDOM 79 mg/dL (74-106)
[2024-11-11 09:46] LABS: CREATININE 10.1 mg/dL (0.55-1.3)
[2024-11-11] MEDS: VALSARTAN 80 MG TABLET PO SCH (10:24)
[2024-11-11] MEDS: PANTOPRAZOLE 40 MG TABLET PO SCH (10:25)
[2024-11-11] MEDS: PERITONEAL DIALYSIS 2.5% SOLN 2,500 ML IP ONE (13:31)
[2024-11-11 14:32] VITALS: BP 149/81; PULSE 69; RESP 18; TEMP 98.4
[2024-11-11 19:43] LABS: HIV INTERPRETATION NEGATIVE (NEGATIVE)
== END 2024-11-11 17:34 | disposition home or self-care (01) | DRG 291 ==
LOC: JER 02:05 → JERBED 06:14 → J4S 20:52
PROVIDERS: ADMIT Internal Medicine; ATTEND Internal Medicine
PROC: 5A1D70Z Performance of Urinary Filtration, Intermittent, Less than 6 Hours Per Day (ICD-10-PCS; principal; 2024-11-10)
DX: I13.2 Hypertensive heart and chronic kidney disease with heart failure and with stage 5 chronic kidney disease, or end stage renal disease (principal); I50.33 Acute on chronic diastolic (congestive) heart failure; J96.01 Acute respiratory failure with hypoxia; J96.02 Acute respiratory failure with hypercapnia; N18.6 End stage renal disease; F11.20 Opioid dependence, uncomplicated; I25.10 Atherosclerotic heart disease of native coronary artery without angina pectoris; E78.5 Hyperlipidemia, unspecified; D64.9 Anemia, unspecified; F17.210 Nicotine dependence, cigarettes, uncomplicated; E87.70 Fluid overload, unspecified; Z99.2 Dependence on renal dialysis
CPT/HCPCS: 36415; 36600; 71045-TC-FY; 80048; 80053; 82803; 83735; 83880; 84100; 84484; 85025; 85027; 85610; 85730; 86704; 86803; 87340; 87389; 87517; 93005; 93010; 93306-TC; 99291; Q5106

== ENCOUNTER 2024-11-12 09:29 | Observation (INO) | payer OTHER ==
[2024-11-12] MEDS ORDERED: ALBUTEROL SO4 2.5/IPRATROPIUM 0.5 INH SOL 3 ML VIAL.NEB. NEB ONE (10:07)
[2024-11-12] MEDS: ALBUTEROL SO4 2.5/IPRATROPIUM 0.5 INH SOL 3 ML VIAL.NEB. NEB ONE (10:15)
[2024-11-12 11:06] LABS: ABSOLUTE IMMATURE GRANULOCYTES 0.03 x10^3/uL (0.0-0.031); BASOPHILS # 0.06 x10^3/uL (0.01-0.08); EOSINOPHIL % 4.2 % (0.8-7.0); EOSINOPHILS # 0.32 x10^3/uL (0.04-0.54); MCHC 30.4 g/dl (32.3-36.5); MEAN CELL VOLUME 100.7 fl (79.0-92.2); MEAN PLT VOLUME 11.1 fl (9.4-12.4); MONOCYTE # 0.76 x10^3/uL (0.30-0.82); MONOCYTE % 10.0 % (5.3-12.2); RDW 17.2 % (12.2-16.4)
[2024-11-12 11:38] LABS: CO2 31 mmol/L (21-32); GLUCOSE,RANDOM 77 mg/dL (74-106)
[2024-11-12 11:41] LABS: SGOT/AST 14 U/L (15-37); SGPT/ALT 18 U/L (13-61)
[2024-11-12] MEDS ORDERED: SODIUM CHLORIDE 250 ML IV PRN (11:41)
[2024-11-12 11:43] LABS: TOT PROT 5.9 g/dl (6.4-8.2)
[2024-11-12 12:18] LABS: ALK PHOS 151 U/L (45-117); CREATININE 11.7 mg/dL (0.55-1.3); N-TERMINAL BNP 104565.8 pg/ml (5-125)
[2024-11-12 12:42] LABS: HCV DIAGNOSTIC IN-HOUSE W/RFLX NON-REACTIVE (NONREACTIVE)
[2024-11-12 12:43] LABS: HIV INTERPRETATION NEGATIVE (NEGATIVE)
[2024-11-12] MEDS ORDERED: ALBUTEROL SO4 2.5/IPRATROPIUM 0.5 INH SOL 3 ML VIAL.NEB. NEB PRN (13:07)
[2024-11-12] MEDS: EPOETIN ALFA-EPBX 4,000 UNIT/ML VIAL SQ ONE (15:25)
[2024-11-12 16:49] VITALS: RESP 18
[2024-11-12 17:13] VITALS: BMI 26.1
[2024-11-12] MEDS: HEPARIN NA (PORCINE) 5,000 UNITS/ML 1ML VIAL SQ SCH (17:55)
[2024-11-12] MEDS: NIFEdipine E.R 60 MG TABLET PO SCH (21:43)
[2024-11-12] MEDS: CARVEDILOL 6.25 MG TABLET (FP) PO SCH (21:43)
[2024-11-13] MEDS: ALBUTEROL SO4 2.5/IPRATROPIUM 0.5 INH SOL 3 ML VIAL.NEB. NEB ONE (02:00)
[2024-11-13 08:40] LABS: MCHC 30.6 g/dl (32.3-36.5); MEAN CELL VOLUME 98.6 fl (79.0-92.2); MEAN PLT VOLUME 11.2 fl (9.4-12.4); RDW 16.9 % (12.2-16.4)
[2024-11-13 09:25] LABS: CO2 30.0 mmol/L (21-32); GLUCOSE,RANDOM 80.0 mg/dL (74-106)
[2024-11-13 09:27] LABS: CREATININE 6.8 mg/dL (0.55-1.3); SGPT/ALT 16.0 U/L (13-61)
[2024-11-13 09:28] LABS: SGOT/AST 13.0 U/L (15-37)
[2024-11-13 09:29] LABS: TOT PROT 5.5 g/dl (6.4-8.2)
[2024-11-13 09:30] LABS: ALK PHOS 130.0 U/L (45-117)
[2024-11-13] MEDS: PANTOPRAZOLE 40 MG TABLET PO SCH (10:14)
[2024-11-13] MEDS: ISOSORBIDE MONONITRATE 30 MG TAB.SR.24H (FP) PO SCH (10:14)
[2024-11-13] MEDS: ASPIRIN 81 MG CHEWABLE TABLETS PO SCH (10:14)
[2024-11-13] MEDS: HEPARIN IP SCH (13:54)
[2024-11-13] MEDS: PERITONEAL DIALYSIS 2.5% IP SCH (13:54)
[2024-11-13 16:28] VITALS: BP 147/81; PULSE 76; TEMP 98.2
== END 2024-11-13 17:49 | disposition home or self-care (01) ==
LOC: JER 09:29 → JERBED 12:11 → J5S 16:57 → J4S 11-13 14:21
PROVIDERS: ADMIT Internal Medicine; ATTEND Student in an Organized Health Care Education/Training Program
PROC: 3E0F7GC Introduction of Other Therapeutic Substance into Respiratory Tract, Via Natural or Artificial Opening (ICD-10-PCS; principal; 2024-11-12)
PROC: 3E023GC Introduction of Other Therapeutic Substance into Muscle, Percutaneous Approach (ICD-10-PCS; 2024-11-12)
PROC: 3E033GC Introduction of Other Therapeutic Substance into Peripheral Vein, Percutaneous Approach (ICD-10-PCS; 2024-11-12)
PROC: 3E0337Z Introduction of Electrolytic and Water Balance Substance into Peripheral Vein, Percutaneous Approach (ICD-10-PCS; 2024-11-12)
DX: I11.0 Hypertensive heart disease with heart failure (principal); J96.01 Acute respiratory failure with hypoxia; I12.0 Hypertensive chronic kidney disease with stage 5 chronic kidney disease or end stage renal disease; N18.6 End stage renal disease; Z99.2 Dependence on renal dialysis; R77.8 Other specified abnormalities of plasma proteins; E87.70 Fluid overload, unspecified; Z91.199 Patient's noncompliance with other medical treatment and regimen due to unspecified reason
CPT/HCPCS: 36415; 71045-TC-FY; 80053; 83735; 83880; 84100; 84484; 85025; 85027; 86707; 86803; 87350; 87389; 87637-QW; 93005; 93010; 94640; 96365; 96372; 99285-25; G0378; J1644; Q5106